=== PATIENT | male | born 1980 | race Two or more races ===

== ENCOUNTER 2016-10-19 12:45 | Emergency (ER) | payer OTHER, SELFPAY ==
[~2016-10-19] VITALS: Ht 157.5 cm; Wt 90.7 kg
[2016-10-19] MEDS ORDERED: SODIUM CHLORIDE 0.9% 1,000 ML IV ONE (13:28)
[2016-10-19] MEDS ORDERED: SODIUM CHLORIDE 0.9% 1,000ML IVBOLUS ONE (13:30)
[2016-10-19] MEDS ORDERED: ONDANSETRON 2MG/ML, 2ML IVPush ONE (13:30)
[2016-10-19] MEDS ORDERED: SODIUM CHLORIDE FLUSH 10ML SYR IVF ONE (13:30)
[2016-10-19] MEDS ORDERED: MORPHINE SULFATE 4 MG/ML, 1ML ONE ×2 (13:59→14:53)
[2016-10-19] MEDS ORDERED: ONDANSETRON 2MG/ML, 2ML ONE (13:59)
[2016-10-19] MEDS: MORPHINE SULFATE 4 MG/ML, 1ML IVPush PRN ×2 (14:02→14:57)
[2016-10-19 14:07] LABS: ASPARTATE AMINO TRANSFERASE 66 U/L (15-37); BLOOD UREA NITROGEN 11 mg/dL (7-18)
[2016-10-19] MEDS ORDERED: POTASSIUM CHLORIDE 40 MEQ in SODIUM CHLORIDE 0.9% 1,000 ML IV ONE (14:26)
[2016-10-19] MEDS ORDERED: POTASSIUM CHLORIDE 20 MEQ TAB.ER.PRT PO ONE (14:30)
[2016-10-19] MEDS ORDERED: NS + 40MEQ KCL 1,000 ML IV ONE (14:40)
[2016-10-19] MEDS ORDERED: POTASSIUM CHLORIDE 20 MEQ TAB.ER.PRT ONE (14:40)
[2016-10-19 15:47] VITALS: BP 111/64
== END 2016-10-19 16:42 | disposition home or self-care (01) ==
LOC: ED 15:23
DX: E87.6 Hypokalemia (principal); F17.200 Nicotine dependence, unspecified, uncomplicated
CPT/HCPCS: 36415; 70450; 71010; 76700; 80053; 81003; 83605; 84145; 85025; 87040; 93005; 96361; 96365; 96366; 96375; 96376; 99285; J2405; J3480; J7030

== ENCOUNTER 2016-10-20 08:55 | Emergency (ER) | payer SELFPAY ==
[~2016-10-20] VITALS: Ht 157.5 cm; Wt 89.1 kg
[2016-10-20] MEDS ORDERED: SODIUM CHLORIDE 0.9% 1,000 ML IV ONE (09:42)
[2016-10-20] MEDS ORDERED: ONDANSETRON 2MG/ML, 2ML ONE (09:58)
[2016-10-20] MEDS ORDERED: KETOROLAC 30 MG/1 ML ONE (09:58)
[2016-10-20] MEDS ORDERED: KETOROLAC 30 MG/1 ML IVPush ONE (10:00)
[2016-10-20] MEDS ORDERED: SODIUM CHLORIDE 0.9% 1,000ML IVBOLUS ONE (10:00)
[2016-10-20] MEDS ORDERED: ONDANSETRON 2MG/ML, 2ML IVPush ONE (10:00)
[2016-10-20] MEDS ORDERED: SODIUM CHLORIDE FLUSH 10ML SYR IVF ONE (10:00)
[2016-10-20] MEDS ORDERED: PROMETHAZINE 25 MG/ML, 1ML ONE (10:40)
[2016-10-20 10:56] VITALS: BP 112/58
[2016-10-20] MEDS ORDERED: PROMETHAZINE 25 MG/ML, 1ML IM ONE (11:00)
== END 2016-10-20 11:22 | disposition home or self-care (01) ==
LOC: ED 10:00
DX: R51 Headache (principal); B34.9 Viral infection, unspecified
CPT/HCPCS: 36415; 85025; 96372; 96374; 96375; 99285; J1885; J2405; J2550; J7030